=== PATIENT | male | born 1995 | race Caucasian/White ===

== ENCOUNTER 2019-11-27 10:41 | Day surgery (SDC) | payer OTHER ==
[~2019-11-27 10:41] MED LIST: CEFAZOLIN SODIUM IN 0.9 % NACL 2 GM/100 ML BAG IV ONE
[2019-11-27] MEDS ORDERED: LACTATED RINGERS 1,000 ML IV ONE (11:15)
--- NOTE | 2019-11-27 12:00 | ANESTHESIA ---
Pre-Anesthesia VS, & Labs - Diagnosis R ACL tear - Procedure R AACL reconstruction Vital Signs: Temp Pulse Resp BP Pulse Ox 36.2 C L 75 18 131/67 H 98 11/27/19 10:49 11/27/19 10:49 11/27/19 10:49 11/27/19 10:49 11/27/19 10:49 Height 6 ft 1 in Weight (kg) 74.84 kg - NPO >8 hours Home Medications and Allergies Home Medications: Ambulatory Orders Fexofenadine HCl [Della Allergy] 180 mg PO 11/21/19 Ibuprofen [Ibu] 800 mg PO 11/27/19 Fexofenadine HCl [Della Allergy] 180 mg PO 11/21/19 Ibuprofen [Ibu] 800 mg PO 11/27/19 Allergies/Adverse Reactions: Allergies Allergy/AdvReac Type Severity Reaction Status Date / Time No Known Drug Allergies Allergy Verified 11/21/19 10:11 Anes History & Medical History - Anesthetic History Anesthesia Complications: reports: No previous complications Family history of Anesthesia Complications: Denies Family history of Malignant Hyperthermia: Denies - Medical History Cardiovascular: reports: None Pulmonary: reports: None Gastrointestinal: reports: None Urinary: reports: None Musculoskeletal: reports: Other Endocrine/Autoimmune: reports: None Skin: reports: None Exam General: Alert, Oriented x3, Cooperative Dental: WNL Mouth Opening: Greater than 4 Fingerbreadths Neck Mobility: Normal Mallampati classification: I, II Thyromental Distance: greater than 6 cm Respiratory: Lungs clear, Normal breath sounds, No respiratory distress, Other (current sinus congestion) Cardiovascular: Regular rate Neurological: Normal speech Mental/Cognitive Status: Alert/Oriented X3, Normal for patient Cognitive Status: Within normal limits Plan Anesthesia Type: General, Femoral Block Regional Block: Per Surgeon's request for Post Op pain control Consent for Procedure(s) Verified and Reviewed: Yes Code Status: Attempt Resuscitation ASA classification: 1-Healthy patient Is this case an emergency?: No
[2019-11-27] MEDS ORDERED: EPINEPHrine 1 MG/ML AMP ONE ×2 (12:07→12:10)
[2019-11-27] MEDS ORDERED: BUPIVACAINE 0.25% PF 30 ML VIAL ONE (12:11)
[2019-11-27] MEDS ORDERED: EPINEPHrine 1 MG/ML AMP IR ONE (13:17)
[2019-11-27] MEDS ORDERED: BUPIVACAINE 0.25% PF 30 ML VIAL SUBQ ONE (13:18)
[2019-11-27] MEDS ORDERED: oxyCODONE 5 MG TABLET PO PRN (13:51)
[2019-11-27] MEDS ORDERED: ONDANSETRON 4 MG/2 ML VIAL IVP PRN (13:51)
[2019-11-27] MEDS ORDERED: HYDROmorphone 0.5 MG/0.5 ML SYRINGE ONE (14:04)
[2019-11-27] MEDS ORDERED: fentaNYL 100 MCG/2 ML VIAL ONE (14:04)
--- NOTE | 2019-11-27 14:09 | OPERATIVE REPORT ---
Operative Report - Other Other Information/Narrative: Date of Surgery: 27 November 2019 Pre-Op Diagnosis: Possible right ACL tear Procedure: Right knee arthroscopy with debridement of anterior edge of lateral meniscus. Diagnostic evaluation of the ACL that was found to be intact Postop Diagnosis: Right the lateral meniscus tear Primary Surgeon: Eris Denton Secondary Surgeon: Lai Campbell Complications: None Tourniquet Time: 26 minutes EBL: 5 cc Indication For Surgery: 24-year-old male who injured his right knee while skiing on October 06, 2019. He was diagnosed with an MCL tear that is been managed nonoperatively. An MRI showed potentially a partial tear of the ACL and the decision was made to perform surgery to evaluate the ACL reconstruct if needed. the risks, benefits, and alternatives were discussed. Risks include pain, bleeding, infection, damage to nearby structures and cartilage, lack of symptom relief, need for further surgery, DVT, PE, stroke, and . Written consent was obtained. Examination Under Anesthesia: ROM equal to the contralateral side. Stable dial at 30 & 90 degrees. Stable to varus and valgus stressing at 0 & 30 degrees. 1A Carrie. Minimal glide on Pivot shift. No mechanical sensation Arthroscopic Findings: Loose bodies -none Synovium -injected and exuberant anterior fat pad which was debrided Patella cartilage -normal Trochlear cartilage -normal Medial femoral condyle cartilage -normal Medial tibial plateau cartilage -normal Medial meniscus -normal Anterior cruciate ligament -partial fraying of the posterior lateral bundle of the ACL with good attachment to the lateral femoral condyle as well as the tibial eminence. The anteromedial bundle of the ACL was completely normal. Intraoperative Carrie and anterior drawer was completely normal. Posterior cruciate ligament -normal Lateral femoral condyle cartilage -normal Lateral tibial plateau cartilage -normal Lateral meniscus -tiny tear at the anterior border of the posterior horn tibial root which was debrided. Procedure in Detail: The patient was met in the pre-operative hold area on the day of the procedure. The operative extremity was signed and questions were answered. The patient was brought to the operating room and a general anesthetic was administered. Supine position was used and bony prominences were padded. An examination under anesthesia was performed. Standard prepping and draping was performed. A time out confirmed patient identification, laterality, procedure, allergies, antibiotics, and images. An Esmarch was used to exsanguinate the limb and the tourniquet was elevated to 250 mmHg. A standard diagnostic arthroscopy of the knee was performed through anterolateral and anteromedial portal sites. The anteromedial portal was created under direct visualization after localizing with a spinal needle. The findings can be found above. I then proceeded to use a shaver to debride the very front edge of the lateral meniscus posterior root. My partner and I then inspected the ACL very carefully and found there to be partial fraying of the posterior lateral bundle with good tibial and femoral attachments of the bundle. The anteromedial bundle was completely normal. Intraoperative Carrie and anterior drawer was performed and the ligament had appropriate structure and function. I therefore decided to not perform the ACL reconstruction because was unnecessary. Final images were taken and all arthroscopic fluid and instruments were removed from the knee. The incisions were closed with buried monocryl sutures. Steri strips were applied. A sterile dressing and compression stocking was placed. The patient was awakened and transferred to recovery in stable condition.
[2019-11-27] MEDS ORDERED: oxyCODONE 5 MG TABLET ONE (14:43)
[2019-11-27 15:38] VITALS: BP 121/69
== END 2019-11-27 10:42 | disposition home or self-care (01) ==
LOC: SDS 10:41
PROVIDERS: ATTEND Orthopaedic Surgery
DX: S83.281A Other tear of lateral meniscus, current injury, right knee, initial encounter (principal)
CPT/HCPCS: 29881; A9270; J0690; J1170; J7120